=== PATIENT | female | born 1960 | race Two or more races ===

== ENCOUNTER 2024-12-16 11:58 | Emergency (ER) | payer OTHER ==
[~2024-12-16] VITALS: Ht 172.7 cm; Wt 65.8 kg
[2024-12-16] MEDS ORDERED: 0.9 % SODIUM CHLORIDE 500 ML IV ONE (13:00)
[2024-12-16 14:03] LABS: BASO % 0.6 % (0.1-1.2); EOS # 0.22 (0.04-0.54); EOS % 1.7 % (0.7-7.0); LYMPH # 1.77 (1.18-3.74); LYMPH % 13.3 % (19.3-53.1); MEAN PLATELET VOLUME 10.00 fl (9.4-12.4); MONO # 0.80 (0.24-0.82); MONO % 6.0 % (4.7-12.5); NEUT # 10.41 (1.56-6.13); NEUT % 78.0 % (34.0-71.1); RED CELL DISTRIBUTION WIDTH 13.7 % (11.6-14.4)
[2024-12-16 14:47] LABS: BUN CREA RATIO 24.0 (7.0-25.0); CREATININE SERUM 0.91 mg/dL (0.55-1.02); GFR 62.64; OSMOLALITY SERUM 297.0 MOSM/KG (275-295)
[2024-12-16 14:48] LABS: GLUCOSE FASTING 216.0 mg/dL (65-100)
[2024-12-16] MEDS ORDERED: CODEINE-GUAIFE120 ML (14:56)
== END 2024-12-16 15:38 | disposition home or self-care (01) ==
LOC: ER 11:58
PROVIDERS: Emergency Medicine
DX: R55 Syncope and collapse (principal); Z88.8 Allergy status to other drugs, medicaments and biological substances; Z91.018 Allergy to other foods